=== PATIENT | male | born 1955 | race Caucasian/White ===

== ENCOUNTER 2020-07-30 07:42 | Outpatient (RCR) | payer MEDICARE, BC, SELFPAY ==
[2020-07-01 09:30] VITALS: BMI 33.2
== END 2020-08-28 10:22 | disposition home or self-care (01) ==
LOC: ANHWOC 07:42
PROVIDERS: PCP Family Medicine; Visit Provider Podiatrist Foot & Ankle Surgery
DX: L97.529 Non-pressure chronic ulcer of other part of left foot with unspecified severity (principal)
CPT/HCPCS: 29445; 99212; G0463

== ENCOUNTER 2021-12-14 09:09 | Outpatient (CLI) | payer MEDICARE, BC, SELFPAY ==
[2021-12-14 09:45] LABS: Anion Gap 12 mmol/L (8-16); Blood Urea Nitrogen 23 mg/dL (9-20); Calcium 9.6 mg/dL (8.4-10.2); Carbon Dioxide 23 mmol/L (22-30); Chloride 105 mmol/L (98-107); Estimated Glomerular Filt Rate 36; Glucose 133 mg/dL (65-110); Potassium 3.9 mmol/L (3.4-5.0); Sodium 140 mmol/L (137-145)
== END 2021-12-14 09:10 | disposition home or self-care (01) ==
LOC: ANHSURGERY 09:18
PROVIDERS: Anesthesiology; PCP Family Medicine; Visit Provider Podiatrist Foot & Ankle Surgery
DX: Z01.818 Encounter for other preprocedural examination (principal); E11.9 Type 2 diabetes mellitus without complications
CPT/HCPCS: 36415; 80048

== ENCOUNTER 2021-12-17 02:02 | Day surgery (SDC) | payer MEDICARE, BC, SELFPAY ==
[2021-12-10 08:39] VITALS: BMI 33.5
--- NOTE | 2021-12-10 09:03 | PC.NURSE ---
Report to the Outpatient Waiting Room, entrance under the green pavilion located off [facility], at time __8:30AM on date __12/17/21 . OR Time: ___10:30AM . - You will be asked a series of questions to screen for COVID 19 for your protection. - A mask is required within the hospital. - No visitors are allowed at this time. Preoperative COVID Testing Requirements: No COVID Test needed if: (proof is required; if not received patient will have Rapid Test prior to entry) - Patient has received COVID Vaccine at least 14 days prior to procedure date or - Patient has positive COVID test result within last 90 days of surgery date. COVID Test needed if above criteria is not met If not COVID vaccinated a COVID test must be conducted within 72 hours of surgery and patient is asked to isolate self from time of testing until procedure. You will go to the [facility] for your COVID testing. The [facility] is located at the corner of [address] [facility]. You will only be called if COVID results are positive and your surgeon may reschedule your elective surgery date. Patients may have clear liquids (water, carbonated beverages, clear teas, apple juice) until 3 hours prior to surgery with a maximum of 20 ounces. - No food from midnight until time of surgery - Infants may have breast milk until 4 hours before surgery, formula 6 hours prior to surgery. - Children will be allowed to drink immediately following surgery. If applicable, please bring a bottle or sippy cup to assist with drinking. Juice, water, soda, and popsicles are readily available. For infants on formula, please bring formula the day of surgery. Pacifiers are allowed. Take the following medications with a SIP of water the morning of surgery: ____AMLODIPINE, METOPROLOL, SERTRALINE Medications to discontinue per physician ALL VITAMINS/SUPPLEMENTS 3 DAYS PRE-OP, ASPIRIN PER DR RADER(PATIENT'S CALLING MD) Date to take last dose Please no make-up, nail icelandic, hairspray, perfume, deodorant, or body powder the day of surgery. No jewelry (including any body piercings) or valuables the day of surgery, leave them at home. Please take a shower or bath the night before, or the morning of, surgery with an antibacterial soap. Wear comfortable, loose fitting clothing. Children are encouraged to wear pajamas. - Jewelry must be removed prior to entering the operating room. Rings and piercings that are not removed may be cut off. - The hospital will not accept responsibility for valuables. - Please leave all valuables, including medications, at home the day of surgery. If you are going home after surgery, a licensed otr tanker truck driver must drive you home. - NO public transportation without another adult. - We recommend that an adult stay with you for 24 hours following discharge. - We also recommend that you do not drive, make important decision, drink alcoholic beverages, or take any drugs that were not prescribed by your health care provider for at least 24 hours after your discharge time. For Pediatric surgeries, we recommend two adults accompany the child home (only one inside the building at this time). Follow any additional instructions given to you from your surgeon. Telephone instructions given to ___PATIENT'S WIFE and asked if any additional questions and then verbalized understanding. Patient advised to call surgeon office or pre surgery nurse liaison [phone] if any additional questions.
--- NOTE | ~2021-12-17 | XR_ITS ---
EXAMINATION: XR surgery orthopedic DATE: 12/17/2021 12:38 INDICATION: Left foot hammertoe corrections TECHNIQUE: 2 fluoroscopic images of the left forefoot were obtained during procedure performed by Dr. Martinez. Radiologist was not present for the imaging or procedure. The amount of fluoroscopy time u sed during this procedure was 0.4 minutes. COMPARISON: None. FINDINGS: Hammertoe corrections at the left second and third toes with osteotomies involving heads of the proxi mal phalanges. Second and third proximal interphalangeal arthrodeses placement of fixation devices ac ross both of the joint spaces. The fixation devices have been placed over the percutaneous pins which extend from the tuft of the distal phalanges across the middle and proximal phalanges in the head of the second metatarsal and across the middle phalanx into the midportion of the third proximal phalan x. Mild osteoarthritis at the first metatarsophalangeal and a few of the remaining interphalangeal baltazar ints. IMPRESSION: 1. Fluoroscopy utilized during second third hammertoe correction with arthrodesis at the second and t hird proximal interphalangeal joints. See procedure note for further detail. Reviewed, dictated and finalized at location A. R DIAMETER TECHNICIAN IMPRESSION: 1. Fluoroscopy utilized during second third hammertoe correction with arthrodes is at the second and third proximal interphalangeal joints. See procedure note for further detail.
--- NOTE | 2021-12-17 07:12 | WPDHPUPDATE1 ---
History and Physical Update Update Date/Time: 12/17/21 07:12 History and Physical has been reviewed, including an updated exam of the patient. There are NO changes in the patient's condition. Risks, benefits, and alternatives have been discussed and questions answered. Patient agrees to proceed with procedure.
[2021-12-17 09:00] VITALS: BMI 33.5
[2021-12-17] MEDS: LACTATED RINGERS 1,000 ML 30 ML IV CONT ×2 (09:35→12:47)
--- NOTE | 2021-12-17 09:37 | SUR.PREOP ---
PT HAS A HEALING SORE ON THE BOTTOM OF THE LEFT 2ND TOE. PT STATES DR RADER IS AWARE, RN WILL NOTIFY DR RADER ANYWAY
[2021-12-17 09:43] LABS: Glucose Point of Care 135 mg/dl (65-105)
--- NOTE | 2021-12-17 10:54 | WPDANESEPPF ---
Anes - Initial Pre Proc Eval Procedure: Operation Date: 12/17/21 10:30 Proposed Procedures p Hammer Toe Repair Second and Third Digits Left Foot - Raymond Martinez JR, MD Date/Time: 12/17/21 10:54 Surgeon: Raymond Martinez JR, MD Pre Op Diagnosis: Hammertoes 2nd and 3rd digits Lt Foot Patient Data Age: 66 Gender: M Height: 1.8 m Weight: 109 kg Allergies Allergy/AdvReac Type Severity Reaction Status Date / Time fluorescein AdvReac Intermediate Hives Verified 12/17/21 09:09 Home Medications Medication Instructions Recorded Confirmed Type aspirin 81 mg PO DAILY 07/01/20 12/17/21 History atorvastatin 40 mg PO HS 07/01/20 12/17/21 History gabapentin 600 mg PO HS 07/01/20 12/17/21 History losartan 50 mg PO QAM 07/01/20 12/17/21 History metformin 1,000 mg PO BID 07/01/20 12/17/21 History metoprolol tartrate 25 mg PO QAM 07/01/20 12/17/21 History sertraline 25 mg PO QAM 07/01/20 12/17/21 History sitagliptin [Januvia] 100 mg PO QAM 07/01/20 12/17/21 History amlodipine 10 mg PO QAM 12/10/21 12/17/21 History docusate sodium 100 mg PO HS 12/10/21 12/17/21 History melatonin 3 mg PO HS 12/10/21 12/17/21 History multivit with min-folic acid 1 tablet PO DAILY 12/10/21 12/17/21 History [Daily Multiple For Men] Laboratory Tests 12/17/21 09:35 POC Capillary Glucose 135 mg/dl H mg/dl (65-105) Patient hx anesthesia problems: none Family hx anesthesia problems: none Results Review: All pre-operative results and documents have been reviewed as part of the pre-operative evaluation. [facility] Social History Social History Smoking status: Former smoker Tobacco type: cigars Smoking end date: 05/06/18 Alcohol use details: HEAVY DRINKER IN 30'S-40'S. QUIT IN EARLY 60'S Substance use: never Living arrangements: with family Additional living arrangements comments: Gender identity (if verbalized by the patient): Male Sexual Orientation (if Verbalized by the Patient): Straight or Heterosexual Spiritual care concerns: No Anes - Eval Final PreProcedure Day of Procedure 12/17/21 10:54 Patient weight: obese Heart: regular rate and rhythm Lungs: clear to auscultation Airway: Mallampati scale class III Neurological: alert and oriented Last oral intake: >/= 8 hours ASA classification: III Emergent: no Anesthetic plan: proceed Anesthesia type and monitoring: general GIVS and standard monitoring Results Review: All pre-operative results and documents have been reviewed as part of the pre-operative evaluation. Informed Consent: The patient's anesthetic plan and its attendant risks and benefits were discussed with the patient/family/POA. Questions were solicited and answers provided to the satisfaction of the patient/family/POA.
[2021-12-17] MEDS: ceFAZolin 2 GM/D5W 50 ML 2 GM/50 ML BAG IVPB (11:33)
--- NOTE | 2021-12-17 11:41 | SUR.PREOP ---
1100; dr sanchez notified of wound to bottom of left 2nd toe
[2021-12-17] MEDS: BUPIVACAINE HCL 0.5% PF 30 ML VIAL INFILTRATE (11:56)
[2021-12-17] MEDS: LIDOCAINE HCL 2% LOCAL INJ 20 ML VIAL 10 ML INFILTRATE (11:56)
[2021-12-17 12:47] VITALS: BP 94/60; PULSE 61; RESP 12; O2SAT 99
--- NOTE | 2021-12-17 13:11 | W.PM.PROC2 ---
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 A pneumatic ankle tourniquet was placed about the patient's ankle. Following monitored anesthesia care and a proximal foot block with 20cs's of a one to one mixture of 2% Lidocaine plain and 0.5% Marcaine plain, the foot was then scrubbed, prepped, and draped in the usual aseptic manner. An Esmarch bandage was then used to examine the patient's foot and pneumatic ankle tourniquet was then inflated. Surgery began in the following manner. Attention was directed to the second digit of the foot where a 3cm incision was made from the distal interphalangeal joint extending to the 2nd metatarsal head. A transverse tenotomy was created dorsal to the proximal and distal interphalangeal joints, next the head of the proximal phalanx and middle phalanx was resected with an oscillating saw blade, the [employer] hammertoe planer was used to denude and prepare the joint for the hammertoe implant from the base of the middle phalanx and distal proximal phalanx and the distal interphalangeal joint was feathered until the joint was fully resected with the same oscillating saw blade. Next, I implanted the [employer] Phalinx cannulated size large hammertoe implant using standard technique. Fluoroscopy was used to make sure that the digit and implant were appropriately positioned. I retrograted the guide wire into the 2nd metatarsal head. I reapproximated the extensor tendon over the fused proximal phalangeal joint of the digit with 4.0 Vicryl. I reapproximated the subcutaneous structures with 4.0 vicryl and the skin with 4-0 Monocryl in running subcuticular suture fashion technique. The exact procedure was duplicated for the 3rd digit with the only difference being that I implanted a size medium hammertoe implant, I did not drive the guide wire into the 3rd metatarsal head. Upon completion of the procedure, the incision was dressed with Adaptic, 4 x 4's, Kerlix, and Coban. The pneumatic ankle tourniquet was then deflated and a prompt hyperemic response noted to all digits of the foot. A surgical shoe was then applied. The patient did very well with the procedure and the anesthesia. The patient was transferred to the recovery room with vital signs stable and vascular status intact to all toes of the affected foot. Following a period of postoperative monitoring, the patient will be discharged home on the following written and oral postoperative instructions: 1. Keep the dressing clean, dry, and intact. Use a cast protector bag with showers. 2. The patient should use a surgical shoe for ambulation postoperatively. 3. The patient should be on bedrest with bathroom privileges and elevate the affected foot when at rest. 4. The patient to contact Dr. Martinez for all postop care and if any problems arise. 5. Prescriptions were written for Percocet 5/325 dispensed 40 to be taken 1 p.o. q.4 to 6 hours as needed for severe pain. 6. Take one Aspirin 325mg every 24hours for two weeks post operatively. Estimated Blood Loss -10.0 Drains No Packing No Pathology none sent Complications No immediate complications Condition stable Disposition same day
[2021-12-17 13:16] LABS: Glucose Point of Care 115 mg/dl (65-105)
[2021-12-17 13:17] VITALS: BP 111/67; PULSE 60; RESP 12; O2SAT 100
[2021-12-17 13:47] VITALS: BP 135/77; PULSE 65; RESP 12
[2021-12-17 14:17] VITALS: BP 132/76; PULSE 62; RESP 12
== END 2021-12-17 14:30 | disposition home or self-care (01) ==
PROVIDERS: PCP Family Medicine; Visit Provider Podiatrist Foot & Ankle Surgery
PROC: (CPT 28285; principal; 2021-12-17 10:30)
DX: M20.42 Other hammer toe(s) (acquired), left foot (principal); Z79.82 Long term (current) use of aspirin; Z79.84 Long term (current) use of oral hypoglycemic drugs; Z87.891 Personal history of nicotine dependence; E66.9 Obesity, unspecified; Z68.33 Body mass index [BMI] 33.0-33.9, adult
CPT/HCPCS: 28285 ×2; 82948; C1776; J0690; J1100; J2250; J2405; J2704; J3010; J7120